=== PATIENT | female | born 1975 | race Two or more races ===

== ENCOUNTER 2024-02-11 08:00 | Inpatient (IN) | payer OTHER ==
[~2024-02-11] VITALS: Ht 165.1 cm; Wt 85.7 kg
[2024-02-11 11:52] VITALS: BP 129/93
[2024-02-11 11:58] LABS: HEMATOCRIT 37.7 % (36.0-45.00); HEMOGLOBIN 12.3 g/dL (12.0-15.00); MEAN CELL VOLUME 84.9 fL (80.00-100.00); MEAN CORPUSCULAR HEMOGLOBIN 27.8 pg (27.00-32.0); MEAN CORPUSCULAR HGB CONC 32.7 g/dl (32.0-36.0); PLATELET COUNT 463 K/uL (150-450); RED BLOOD COUNT 4.44 M/uL (4.00-6.00)
[2024-02-11] MEDS ORDERED: PROAIR DIGIHAL90 MCG IH (12:07)
[2024-02-11] MEDS ORDERED: MONTELUKAST SOD10 MG PO (12:07)
[2024-02-11 12:08] LABS: PH,URINE 7.5 (5.0-8.0); URINE APPEARANCE Clear; URINE BILIRRUBIN Negative (NEGATIVE); URINE BLOOD Negative; URINE COLOR Yellow; URINE GLUCOSE Negative (NEGATIVE); URINE KETONE Negative (NEGATIVE); URINE LEUKOCYTE Negative; URINE NITRATE Negative; URINE PROTEIN Trace (NEGATIVE)
[2024-02-11] MEDS ORDERED: BUDESONIDE-FO10.2 G1 IH (12:08)
[2024-02-11 12:09] LABS: URINE BACTERIA 78.3 uL (0.0-1933); URINE EPITHELIAL CELLS 10.4 uL (0.0-38.8); URINE RBC 40.6 uL (0.0-20.8); URINE WBC 3.3 uL (0.0-23.2)
[2024-02-11 12:16] LABS: URINE CAST 0.88 uL (0.0-1.40)
[2024-02-11 12:28] LABS: PARTIAL THROMBOPLASTIN TIME 24.2 SECONDS (22.0-34.0); PROTHROMBIN TIME 10.9 SECONDS (9.0-11.5)
[2024-02-11 12:31] LABS: ALBUMIN 3.6 gm/dL (3.4-5.0); BILIRUBIN TOTAL 0.57 mg/dL (0.3-1.2); CREATININE SERUM 0.9 mg/dL (0.55-1.02); GFR 66.83; GLOBULINA 4.4 G/DL (2.4-3.5); POTASSIUM 4.31 mEq/L (3.5-5.1)
[2024-02-16] MEDS ORDERED: SUGAMMADEX SODIUM 200 MG/2 ML VIAL IV ONE (18:30)
[2024-02-16] MEDS ORDERED: MEPERIDINE HCL/PF 50 MG/ML VIAL IV SCH (18:30)
[2024-02-16] MEDS ORDERED: CEFAZOLIN SODIUM 1,000 MG VIAL IV ONE (18:30)
[2024-02-16] MEDS ORDERED: MORPHINE SULFATE 4 MG/ML VIAL IV ONE ×2 (19:10→19:40)
[2024-02-16] MEDS ORDERED: PROMETHAZINE HCL 25 MG/ML AMPUL IV SCH (20:00)
[2024-02-16 21:07] VITALS: BP 145/83
[2024-02-17] VITALS: BP 115/73
[2024-02-17] MEDS ORDERED: IBUprofen 800 MG TABLET PO SCH (02:00)
[2024-02-17] MEDS ORDERED: POLYETHYLENE GLYCOL 3350 17 GM BLIST.PACK PO SCH (05:00)
[2024-02-17] MEDS ORDERED: SIMETHICONE 125 MG CAPSULE PO SCH (05:00)
[2024-02-17] MEDS ORDERED: GABAPENTIN 600 MG TABLET PO SCH (05:00)
[2024-02-17 07:17] LABS: HEMATOCRIT 35.3 % (36.0-45.00); HEMOGLOBIN 11.4 g/dL (12.0-15.00); MEAN CELL VOLUME 86.3 fL (80.00-100.00); MEAN CORPUSCULAR HGB CONC 32.4 g/dl (32.0-36.0); PLATELET COUNT 325 K/uL (150-450); RED BLOOD COUNT 4.09 M/uL (4.00-6.00); RED CELL DISTRIBUTION WIDTH 13.4 % (11.5-14.5)
[2024-02-17 09:55] VITALS: BP 138/86
[2024-02-17] MEDS ORDERED: KETOROLAC TROMETHAMINE 60 MG VIAL IM STA (12:02)
[2024-02-17] MEDS ORDERED: GABAPENTIN 300 MG CAPSULE PO SCH (13:00)
[2024-02-17 16:10] VITALS: BP 119/74
[2024-02-17] MEDS ORDERED: ALBUTEROL SULFATE 3 ML/2.5 MG AMPUL.NEB IH SCH (17:00)
[2024-02-17 20:54] VITALS: BP 118/80
[2024-02-18 01:07] VITALS: BP 119/80
[2024-02-18] MEDS ORDERED: GABAPENTIN300 MG PO (07:04)
[2024-02-18] MEDS ORDERED: SIMETHICONE125 M1 PO (07:04)
[2024-02-18] MEDS ORDERED: POLY119PG PO (07:04)
[2024-02-18] MEDS ORDERED: KETO10TA2 PO (07:06)
[2024-02-18 08:51] VITALS: BP 109/76
== END 2024-02-18 11:39 | disposition home or self-care (01) | DRG 743 ==
LOC: ADM 08:00 → O/R 02-16 06:59 → SURG 02-16 08:00 → CIR.AMB 02-16 08:00 → EDSTATUS 02-16 08:00 → SURG 02-16 09:30 → OB/GYN 02-16 19:27
PROVIDERS: ADMIT Obstetrics & Gynecology; ATTEND Obstetrics & Gynecology
PROC: 0UT50ZZ Resection of Right Fallopian Tube, Open Approach (ICD-10-PCS; 2024-02-16)
PROC: 0UT90ZZ Resection of Uterus, Open Approach (ICD-10-PCS; principal; 2024-02-16 09:30)
DX: D25.2 Subserosal leiomyoma of uterus (principal); D25.0 Submucous leiomyoma of uterus; N72 Inflammatory disease of cervix uteri; N84.1 Polyp of cervix uteri; Z20.822 Contact with and (suspected) exposure to COVID-19